=== PATIENT | female | born 1950 ===

== ENCOUNTER 2021-03-15 07:18 | Outpatient (CLI) | payer OTHER ==
[~2021-03-15 07:18] MED LIST: ASA81 MG PO; ATENOLOL50 MG PO; CALCIUM1 TAB PO; CRESTOR10 MG PO
== END 2021-03-15 07:25 | disposition home or self-care (01) ==
LOC: NUCLEAR 07:18
PROVIDERS: ATTEND Internal Medicine Cardiovascular Disease
DX: I20.8 Other forms of angina pectoris (principal)
CPT/HCPCS: 78452; 93017; A9500